=== PATIENT | female | born 1970 | race African-American/Black ===

== ENCOUNTER 2018-11-02 10:42 | Emergency (ER) | payer OTHER ==
[~2018-11-02] VITALS: Ht 172.7 cm; Wt 112.2 kg
[~2018-11-02 10:42] MED LIST: ADIPEX-P37.5 MG PO; AMOXICILLIN500 M1 PO; ASPIR 8181 MG PO; ASTEPRO205.5 MCG/ NS; AUGMENTIN 875875 MG PO; CLARITIN-D 24 H1 TA1 PO; FLONASE 0.05%50 MCG NASAL; PREDNISONE 20 M20 M1 PO; PRENATAL PO; PROMETHAZINE-D120 ML PO
[2018-11-02] MEDS ORDERED: NAPROSYN500 MG PO (11:46)
[2018-11-02 12:04] VITALS: BP 115/67
== END 2018-11-02 12:13 | disposition home or self-care (01) ==
LOC: M.ERS 10:42
DX: M25.562 Pain in left knee (principal); Z88.2 Allergy status to sulfonamides

== ENCOUNTER 2019-02-10 17:26 | Emergency (ER) | payer OTHER ==
[~2019-02-10] VITALS: Ht 172.7 cm; Wt 108.9 kg
[~2019-02-10 17:26] MED LIST changes: +NAPROSYN500 MG PO
[2019-02-10] MEDS ORDERED: FLONASE 0.05%50 MCG NASAL (18:02)
[2019-02-10 19:43] VITALS: BP 121/75
== END 2019-02-10 19:43 | disposition home or self-care (01) ==
LOC: M.ERS 17:26
DX: M25.561 Pain in right knee (principal); Z88.2 Allergy status to sulfonamides; Z86.718 Personal history of other venous thrombosis and embolism

== ENCOUNTER 2019-10-16 22:30 | Emergency (ER) | payer OTHER ==
[~2019-10-16] VITALS: Ht 172.7 cm; Wt 113.4 kg
[2019-10-16] MEDS ORDERED: MEDROLDOSEPACK PO (22:53)
[2019-10-16 23:00] VITALS: BP 138/80
== END 2019-10-16 23:00 | disposition home or self-care (01) ==
LOC: M.ERS 22:30
DX: R21 Rash and other nonspecific skin eruption (principal); T78.40XA Allergy, unspecified, initial encounter; Z91.018 Allergy to other foods; Z88.2 Allergy status to sulfonamides; X58.XXXA Exposure to other specified factors, initial encounter